=== PATIENT | male | born 1970 | race African-American/Black ===

== ENCOUNTER → 2016-12-11 | Outpatient (CLI) | payer BC | LOC: MW.CHPOD 10:08 | PROVIDERS: ATTEND Podiatrist Foot & Ankle Surgery | DX: M79.673 Pain in unspecified foot (principal); Z53.9 Procedure and treatment not carried out, unspecified reason ==

== ENCOUNTER 2018-01-19 07:38 | Emergency (ER) | payer BC ==
[2018-01-19] MEDS ORDERED: Diazepam 5 MG Tab PO ONE (07:59)
--- NOTE | 2018-01-19 08:15 | EDM.PDOC ---
ED HPI GENERAL MEDICAL PROBLEM - General Chief Complaint: Lower Extremity Injury/Pain Stated Complaint: PAIN ON RIGHT SIDE OF BODY Time Seen by Provider: 01/19/18 08:11 - History of Present Illness INITIAL COMMENTS - FREE TEXT/NARRATIVE: HISTORY AND PHYSICAL: History of present illness: Patient is a 47-year-old male presents with her right shoulder and arm pain he' s had prior rotator cuff injuries and also had extensive surgery on his right foot and has chronic pain for which he takes Lyrica and oxycodone. He denies any new injury. Review of systems: As per history of present illness and below otherwise all systems reviewed and negative. Past medical history: As per history of present illness and as reviewed below otherwise noncontributory. Surgical history: As per history of present illness and as reviewed below otherwise noncontributory. Social history: No reported history of drug or alcohol abuse. Family history: As per history of present illness and as reviewed below otherwise noncontributory. Physical exam: HEENT: Atraumatic, normocephalic, pupils reactive, negative for conjunctival pallor or scleral icterus, mucous membranes moist, throat clear, neck supple, nontender, trachea midline. Lungs: Clear to auscultation, breath sounds equal bilaterally, chest nontender. Heart: S1S2, regular, negative for clicks, rubs, or JVD. Abdomen: Soft, nondistended, nontender. Negative for masses or hepatosplenomegaly. Negative for costovertebral tenderness. Pelvis: Stable nontender. Genitourinary: Deferred. Rectal: Deferred. Extremities: Patient has limited range of motion in his right shoulder secondary to pain is no crepitation is no point tenderness there is some mild general discomfort to palpation of his right shoulder no erythema no warmth neurovascular exam CMS are unremarkable Neuro: Awake, alert, oriented. Cranial nerves II through XII unremarkable. Cerebellum unremarkable. Motor and sensory unremarkable throughout. Exam nonfocal. Diagnostics: X-ray right shoulder Therapeutics: Valium 5 mg by mouth Impression: #1 right shoulder pain #2 chronic pain syndrome Definitive disposition and diagnosis as appropriate pending reevaluation and review of above. right leg Pain Score (Numeric/FACES): 3 right arm Pain Score (Numeric/FACES): 10 - Related Data Allergies Allergy/AdvReac Type Severity Reaction Status Date / Time No Known Allergies Allergy Verified 01/19/18 07:55 Home Meds: Home Meds Acetaminophen [Tylenol] 325 mg PO DAILY PRN 01/19/18 [History] Pregabalin [Lyrica] 100 mg PO BID 01/19/18 [History] oxyCODONE HCl/Acetaminophen [oxyCODONE-Acetaminophen 2.5-325] 1 tab PO BID 01/19 [History] Past Medical History HEENT History: Reports: None Cardiovascular History: Reports: None Respiratory History: Reports: None Gastrointestinal History: Reports: None Genitourinary History: Reports: None Musculoskeletal History: Reports: Fibromyalgia, RA Neurological History: Reports: None Psychiatric History: Reports: Depression Endocrine/Metabolic History: Reports: None Hematologic History: Reports: None Immunologic History: Reports: None Oncologic (Cancer) History: Reports: None Dermatologic History: Reports: None - Infectious Disease History Infectious Disease History: Reports: Chicken Pox - Past Surgical History Head Surgeries/Procedures: Reports: None HEENT Surgical History: Reports: None Cardiovascular Surgical History: Reports: None Respiratory Surgical History: Reports: None GI Surgical History: Reports: None Male Surgical History: Reports: None Endocrine Surgical History: Reports: None Neurological Surgical History: Reports: None Musculoskeletal Surgical History: Reports: Other (See Below) Other Musculoskeletal Surgeries/Procedures:: right foot reconstruction 10/15/17 Oncologic Surgical History: Reports: None Dermatological Surgical History: Reports: None Social & Family History - Family History Family Medical History: Noncontributory - Tobacco Use Smoking Status *Q: Current Every Day Smoker Years of Tobacco use: 10 Packs/Tins Daily: 2 - Caffeine Use Caffeine Use: Reports: Coffee - Alcohol Use Days Per Week of Alcohol Use: 2 Number of Drinks Per Day: 1 Total Drinks Per Week: 2 - Recreational Drug Use Recreational Drug Use: No Review of Systems - Review of Systems Review Of Systems: ROS reveals no pertinent complaints other than HPI. ED EXAM, GENERAL - Physical Exam Exam: See Below (See dictation) Course - Vital Signs Last Recorded V/S: Last Vital Signs Temp 36.9 C 01/19/18 07:48 Pulse 102 H 01/19/18 07:48 Resp 18 01/19/18 07:48 BP 120/75 01/19/18 07:48 Pulse Ox 98 01/19/18 07:48 - Orders/Labs/Meds Orders: Active Orders 24 hr Category Date Time Status Shoulder Comp Rt [CR] Stat Exams 01/19/18 07:53 Ordered Meds: Medications Discontinued Medications Generic Name Dose Route Start Last Admin Trade Name Clare PRN Reason Stop Dose Admin Diazepam 5 mg 01/19/18 07:59 01/19/18 08:02 Valium. PO 01/19/18 08:00 5 mg ONETIME ONE Administration Departure - Departure Time of Disposition: 08:13 Disposition: Home, Self-Care 01 Condition: Good Clinical Impression: Shoulder pain - Discharge Information Referrals: Chris Beyer MD [Primary Care Provider] - Additional Instructions: The following information is given to patients seen in the emergency department who are being discharged to home. This information is to outline your options for follow-up care. We provide all patients seen in our emergency department with a follow-up referral. The need for follow-up, as well as the timing and circumstances, are variable depending upon the specifics of your emergency department visit. If you don't have a primary care physician on staff, we will provide you with a referral. We always advise you to contact your personal physician following an emergency department visit to inform them of the circumstance of the visit and for follow-up with them and/or the need for any referrals to a consulting specialist. The emergency department will also refer you to a specialist when appropriate. This referral assures that you have the opportunity for followup care with a specialist. All of these measure are taken in an effort to provide you with optimal care, which includes your followup. Under all circumstances we always encourage you to contact your private physician who remains a resource for coordinating your care. When calling for followup care, please make the office aware that this follow-up is from your recent emergency room visit. If for any reason you are refused follow-up, please contact the [facility] emergency department at and asked to speak to the emergency department charge nurse. [facility] - Orth[facility] Clinic Professional Building [address] [place] [address], [address] [place] [address] Continue current medications follow-up orthopedic clinic above and primary medical doctor return as needed as discussed - My Orders Last 24 Hours: My Active Orders 01/19/18 07:53 Shoulder Comp Rt [CR] Stat - Assessment/Plan Last 24 Hours: My Active Orders 01/19/18 07:53 Shoulder Comp Rt [CR] Stat
--- NOTE | 2018-01-19 08:27 | CR ---
EXAMINATION: Right shoulder HISTORY: Pain COMPARISON: None TECHNIQUE: 3 views FINDINGS: There is no acute osseous abnormality, dislocation, or fracture. Mild acromioclavicular ost eoarthritic changes noted. Mild cortical sclerosis underlying the rotator cuff insertion. Glenohumera l joint space is preserved. Bone mineralization is otherwise normal. IMPRESSION: Mild degenerative changes without acute findings.
[2018-01-19 08:59] VITALS: BP 124/77
== END 2018-01-19 08:54 | disposition home or self-care (01) ==
LOC: MW.ED 07:38
DX: M25.511 Pain in right shoulder (principal); G89.29 Other chronic pain; F17.210 Nicotine dependence, cigarettes, uncomplicated; Z79.899 Other long term (current) drug therapy
CPT/HCPCS: 73030; 99283; A9270

== ENCOUNTER 2019-11-12 22:10 | Emergency (ER) | payer BC ==
[2019-11-12] MEDS ORDERED: Penicillin G Benzathine 1,200,000 Units/2 ML Syringe IM ONE (22:32)
--- NOTE | 2019-11-12 22:34 | EDM.PDOC ---
ED HPI GENERAL MEDICAL PROBLEM - General Chief Complaint: General Stated Complaint: TOOTH PAIN Time Seen by Provider: 11/12/19 22:15 Source of Information: Reports: Patient - History of Present Illness INITIAL COMMENTS - FREE TEXT/NARRATIVE: A 49-year-old male presents to the ER secondary to facial swelling. The patient states he has known dental issues and he is following up with a dentist but over the last days had some swelling in his left lower mandible anteriorly and it is very painful. No other complaints. dental area Pain Score (Numeric/FACES): 10 - Related Data Allergies Allergy/AdvReac Type Severity Reaction Status Date / Time No Known Allergies Allergy Verified 11/12/19 22:30 Home Meds: Home Meds Pregabalin [Lyrica] 100 mg PO TID 01/19/18 [History] oxyCODONE HCl/Acetaminophen [oxyCODONE-Acetaminophen 2.5-325] 1 tab PO ASDIRECTED PRN 01/19/18 [History] Rivaroxaban [Xarelto] mg PO DAILY 05/13/19 [History] Past Medical History HEENT History: Reports: None Cardiovascular History: Reports: None Respiratory History: Reports: None Gastrointestinal History: Reports: None Genitourinary History: Reports: None Musculoskeletal History: Reports: Fibromyalgia, RA Neurological History: Reports: None Psychiatric History: Reports: Depression Endocrine/Metabolic History: Reports: None Hematologic History: Reports: None Immunologic History: Reports: None Oncologic (Cancer) History: Reports: None Dermatologic History: Reports: None - Infectious Disease History Infectious Disease History: Reports: Chicken Pox - Past Surgical History Head Surgeries/Procedures: Reports: None HEENT Surgical History: Reports: None Cardiovascular Surgical History: Reports: None Respiratory Surgical History: Reports: None GI Surgical History: Reports: None Male Surgical History: Reports: None Endocrine Surgical History: Reports: None Neurological Surgical History: Reports: None Musculoskeletal Surgical History: Reports: Other (See Below) Other Musculoskeletal Surgeries/Procedures:: right foot reconstruction 10/15/17 Oncologic Surgical History: Reports: None Dermatological Surgical History: Reports: None Social & Family History - Family History Family Medical History: Noncontributory - Caffeine Use Caffeine Use: Reports: Coffee ED ROS GENERAL - Review of Systems Review Of Systems: See Below (Positive for dental pain and swelling) ED EXAM, GENERAL - Physical Exam Exam: See Below Free Text/Narrative:: Constitutional: No acute distress, Non-toxic appearance. HEENT: Normocephalic, Atraumatic, EOMI, there is a dental abscess along the lower mandible in front of teeth 26 and 27, it has come to ahead and it drains pus when it is manually manipulated Neck: Normal range of motion, No stridor, trachea midline Respiratory: No respiratory distress, No tachypnea Cardiovascular: Deferred Gastrointestinal: Deferred Genital / Urinary: Deferred Musculoskeletal: All four extremities present and atraumatic Back: FROM Integument: Warm, Dry, Color is ethnicity appropriate, No rash. Neuro: Alert, Awake, No focal deficits noted Psych: Affect, Judgement, mood normal Course - Vital Signs Text/Narrative:: I spoke with the patient in detail that because the abscess is draining in the ER we will not have to perform an incision and drainage in the ER. The patient was also given a dose of Bicillin LA and is stable to follow-up with his dentist. Last Recorded V/S: Last Vital Signs Temp 36 C L 11/12/19 23:05 Pulse 96 11/12/19 23:05 Resp 18 11/12/19 23:05 BP 103/69 11/12/19 23:05 Pulse Ox 98 11/12/19 23:05 - Orders/Labs/Meds Meds: Medications Discontinued Medications Generic Name Dose Route Start Last Admin Trade Name Malcolmq PRN Reason Stop Dose Admin Penicillin G Benzathine 1.2 millunits 11/12/19 22:32 11/12/19 22:40 Bicillin L-A IM 11/12/19 22:33 1.2 millunits ONETIME ONE Administration Departure - Departure Time of Disposition: 22:34 Disposition: Home, Self-Care 01 Condition: Good Clinical Impression: Dental abscess - Discharge Information Instructions: Dental Abscess Referrals: Chris Beyer MD [Primary Care Provider] - Forms: ED Department Discharge Care Plan Goals: The following information is given to patients seen in the emergency department who are being discharged to home. This information is to outline your options for follow-up care. We provide all patients seen in our emergency department with a follow-up referral. The need for follow-up, as well as the timing and circumstances, are variable depending upon the specifics of your emergency department visit. If you don't have a primary care physician on staff, we will provide you with a referral. We always advise you to contact your personal physician following an emergency department visit to inform them of the circumstance of the visit and for follow-up with them and/or the need for any referrals to a consulting specialist. The emergency department will also refer you to a specialist when appropriate. This referral assures that you have the opportunity for follow-up care with a specialist. All of these measure are taken in an effort to provide you with optimal care, which includes your follow-up. Under all circumstances we always encourage you to contact your private physician who remains a resource for coordinating your care. When calling for follow-up care, please make the office aware that this follow-up is from your recent emergency room visit. If for any reason you are refused follow-up, please contact the [facility] Emergency Department at and asked to speak to the emergency department charge nurse. [facility] [address] [place] [address] [place] [address] Sepsis Event Note - Evaluation Sepsis Screening Result: No Definite Risk - Focused Exam Vital Signs: Vital Signs Temp Pulse Resp BP Pulse Ox 11/12/19 23:05 36 C L 96 18 103/69 98 11/12/19 22:25 36.1 C 102 H 18 124/78 98 Date Exam was Performed: 11/13/19 Time Exam was Performed: 03:17
[2019-11-12 23:05] VITALS: BP 103/69; PULSE 96
== END 2019-11-12 23:05 | disposition home or self-care (01) ==
LOC: MW.ED 22:10
DX: K04.7 Periapical abscess without sinus (principal)
CPT/HCPCS: 96372; 99283; J0561